=== PATIENT | male | born 1960 | race Caucasian/White ===

== ENCOUNTER 2020-12-06 15:02 | Outpatient (REF) | payer BC, SELFPAY ==
[2020-12-08 14:22] LABS: COVID-19 RT-PCR UVMMC Result Negative (Negative)
== END 2020-12-06 15:03 | disposition home or self-care (01) ==
LOC: NCHCN 15:02
PROVIDERS: PCP Physician Assistant; Visit Provider Nurse Practitioner Family
DX: Z20.822 Contact with and (suspected) exposure to COVID-19 (principal); J06.9 Acute upper respiratory infection, unspecified
CPT/HCPCS: U0003

== ENCOUNTER 2023-05-14 22:14 | Outpatient (REF) | payer BC, SELFPAY ==
[2023-05-14 19:07] LABS: Anion Gap 10.7 mmol/L (3-11); BUN 13 mg/dL (7-18); CO2 24.3 mmol/L (21.0-32.0); CREATININE 0.8 mg/dL (0.70-1.30); Calcium 9.5 mg/dL (8.5-10.1); Calculated LDL 157 mg/dL (<100); Chloride 103 mmol/L (98-107); Cholesterol 216 mg/dL (<200); Estimated GFR 98.83 (mL/min/1.73m2); Glucose 130 mg/dL (74-106); HDL Cholesterol 49 mg/dL (40-60); Potassium 3.6 mmol/L (3.5-5.1); Sodium 138 mmol/L (136-145); Triglyceride 52 mg/dL (<150)
== END 2023-05-14 22:15 | disposition home or self-care (01) ==
LOC: NCHCN 22:14
PROVIDERS: PCP Physician Assistant; Visit Provider Nurse Practitioner Family
DX: E11.9 Type 2 diabetes mellitus without complications (principal); E87.1 Hypo-osmolality and hyponatremia
CPT/HCPCS: 80048; 80061

== ENCOUNTER 2023-06-20 18:05 | Outpatient (REF) | payer BC, SELFPAY ==
[2023-06-20 20:43] LABS: Hemoglobin A1C 8.4 % (<5.7)
== END 2023-06-20 18:06 | disposition home or self-care (01) ==
LOC: NCHCN 18:05
PROVIDERS: PCP Physician Assistant; Visit Provider Nurse Practitioner Family
DX: E11.9 Type 2 diabetes mellitus without complications (principal)
CPT/HCPCS: 83036

== ENCOUNTER 2023-09-26 19:20 | Outpatient (REF) | payer BC, SELFPAY ==
[2023-09-26 19:53] LABS: ALT 26 U/L (16-63); AST 21 U/L (15-37); Alkaline Phosphatase 87 U/L (46-116); Anion Gap 10.8 mmol/L (3-11); BUN 18 mg/dL (7-18); Bilirubin, Total 0.5 mg/dL (0.2-1.0); CO2 24.2 mmol/L (21.0-32.0); CREATININE 0.9 mg/dL (0.70-1.30); Calcium 9.7 mg/dL (8.5-10.1); Calculated LDL 98 mg/dL (<100); Chloride 103 mmol/L (98-107); Cholesterol 164 mg/dL (<200); Estimated GFR 95.37 (mL/min/1.73m2); Glucose 124 mg/dL (74-106); HDL Cholesterol 59 mg/dL (40-60); Potassium 4.3 mmol/L (3.5-5.1); Sodium 138 mmol/L (136-145); Total Protein 7.5 g/dL (6.4-8.2); Triglyceride 36 mg/dL (<150)
== END 2023-09-26 19:21 | disposition home or self-care (01) ==
LOC: NCHCN 19:20
PROVIDERS: PCP Physician Assistant; Visit Provider Nurse Practitioner Family
DX: I10 Essential (primary) hypertension (principal); E78.5 Hyperlipidemia, unspecified
CPT/HCPCS: 80053; 80061

== ENCOUNTER 2024-06-30 18:11 | Outpatient (REF) | payer BC, SELFPAY ==
[2024-06-30 19:17] LABS: HCT 40.1 % (40.0-50.0); HGB 13.2 g/dL (13.5-17.5); MCH 30.3 pg (27.0-33.0); MCHC 32.9 % (32.0-36.0); MCV 92 fL (80-95); MPV 9.6 fL (8.0-11.0); Platelet Count 214 10^3/uL (130-400); RBC 4.35 10^6/uL (4.36-5.78); RDW 12.8 % (11.8-14.1); RDW-SD 43.7 fL; WBC 8.57 10^3/uL (4.4-10.8)
[2024-06-30 19:41] LABS: TSH 3.61 uIU/mL (0.36-3.74)
== END 2024-06-30 18:12 | disposition home or self-care (01) ==
LOC: NCHCN 18:11
PROVIDERS: PCP Physician Assistant; Visit Provider Nurse Practitioner Family
DX: R53.83 Other fatigue (principal)
CPT/HCPCS: 85027; 84443

== ENCOUNTER 2025-04-02 05:16 | Outpatient (CLI) | payer OTHER, SELFPAY ==
[2025-04-02 12:31] LABS: HCT 40.8 % (40.0-50.0); HGB 13.9 g/dL (13.5-17.5); MCH 31.6 pg (27.0-33.0); MCHC 34.1 % (32.0-36.0); MCV 93 fL (80-95); MPV 9.6 fL (8.0-11.0); Platelet Count 206 10^3/uL (130-400); RBC 4.40 10^6/uL (4.36-5.78); RDW 12.6 % (11.8-14.1); RDW-SD 43.4 fL; WBC 7.14 10^3/uL (4.4-10.8)
[2025-04-02 12:59] LABS: ALT 20 U/L (16-63); AST 17 U/L (15-37); Albumin 3.8 g/dL (3.4-5.0); Alkaline Phosphatase 79 U/L (46-116); Bilirubin, Direct 0.1 mg/dL (0.0-0.2); Bilirubin, Total 0.5 mg/dL (0.2-1.0); Total Protein 7.2 g/dL (6.4-8.2)
[2025-04-02 13:15] LABS: Calculated LDL 91 mg/dL (<100); Cholesterol 160 mg/dL (<200); HDL Cholesterol 61 mg/dL (>or=40); Triglyceride 44 mg/dL (<150)
[2025-04-02 13:18] LABS: Anion Gap 9.4 mmol/L (3-11); BUN 14 mg/dL (7-18); CO2 26.6 mmol/L (21.0-32.0); Calcium 9.6 mg/dL (8.5-10.1); Chloride 101 mmol/L (98-107); Estimated GFR 94.19 (mL/min/1.73m2); Glucose 158 mg/dL (74-106); Potassium 4.6 mmol/L (3.5-5.1); Sodium 137 mmol/L (136-145)
== END 2025-04-02 05:17 | disposition home or self-care (01) ==
PROVIDERS: PCP Nurse Practitioner Family; Visit Provider Student in an Organized Health Care Education/Training Program
DX: E78.5 Hyperlipidemia, unspecified (principal); M16.0 Bilateral primary osteoarthritis of hip; Z01.818 Encounter for other preprocedural examination; E11.9 Type 2 diabetes mellitus without complications
CPT/HCPCS: 36415; 80048; 80061; 80076; 85027; 86850; 86900; 86901; 82985

== ENCOUNTER 2025-04-02 11:33 | Outpatient (CLI) | payer OTHER, SELFPAY ==
--- NOTE | 2025-04-02 10:30 | DI.RAD_ITS ---
Exam(s) XR PELVIS AP EXAM: XR PELVIS AP CLINICAL HISTORY: THR Planning. TECHNIQUE: 2D digital imaging was performed. Single AP view. COMPARISON: CR XR HIPS BILAT MIN 2V EA from 07/09/2024 FINDINGS: BONES: No acute fracture is present. No bony destructive lesion is seen. JOINTS: No dislocation present. There is severe narrowing of the bilateral hip joint spaces, with a [id number] appearance. There is prominent periarticular spurring. There is a large subchondral cyst in the superior left femoral head. Smaller subchondral cysts are noted at the superior right femoral head. SOFT TISSUE: Severe vascular calcifications. Calcifications of the vas deferens. IMPRESSION: End-stage degenerative changes of both hips. DATA REPOSITORY: RADIATION DOSE DELIVERED:
== END 2025-04-02 11:34 | disposition home or self-care (01) ==
LOC: DIORS 11:34
PROVIDERS: PCP Nurse Practitioner Family; Visit Provider Physician Assistant
DX: M16.0 Bilateral primary osteoarthritis of hip (principal)
CPT/HCPCS: 72170

== ENCOUNTER 2025-05-15 19:17 | Outpatient (REF) | payer OTHER, SELFPAY | END 2025-05-15 19:18 | disposition home or self-care (01) | LOC: NCHCN 19:17 | PROVIDERS: PCP Nurse Practitioner Family; Visit Provider Nurse Practitioner Family | DX: E11.9 Type 2 diabetes mellitus without complications (principal) | CPT/HCPCS: 82043; 82570 ==